=== PATIENT | female | born 1950 | race Caucasian/White ===

== ENCOUNTER → 2023-02-18 08:00 | Outpatient (CLI) | payer MEDICARE, OTHER, SELFPAY ==
--- NOTE | 2023-02-18 | DI.MRI.S_ITS ---
PROCEDURE: MR CERVICAL SPINE WO CON INDICATIONS: Cervicalgia TECHNIQUE: Noncontrast sagittal T1 spin echo and T2 fast spin echo, sagittal STIR, foraminal oblique sagittal T2 fast spin echo, and axial gradient echo or T2 fast spin echo through the cervical spine. COMPARISON: None. FINDINGS: Image quality: This examination is limited by involuntary motion artifact. Alignment and Curvature: There is normal bony alignment. Bone Marrow: Marrow demonstrates normal overall signal. Spinal Cord: Visualized spinal cord has normal size and signal. No cerebellar tonsillar herniation. Paraspinous Soft Tissues: No paravertebral masses. Prevertebral soft tissues are normal in thickness. C2-C3: Mild loss of disc height is seen. Loss of disc signal is seen. Mild to moderate disc osteophyte complex is seen, which is eccentric to the left. Mild facet joint hypertrophy is seen. There is moderate left-sided and no significant right-sided neural foraminal narrowing. Mild central canal narrowing is seen. C3-C4: Moderate loss of disc height is seen. Loss of disc signal is seen. Moderate disc osteophyte complex is seen. There is a central disc osteophyte protrusion seen. Uncovertebral joint hypertrophy is seen at this level. Moderate facet joint hypertrophy is seen. There is moderate to severe bilateral neural foraminal narrowing. At least moderate central canal narrowing is seen. There is associated mass effect upon the ventral spinal cord. C4-C5: Moderate loss of disc height is seen. Loss of disc signal is seen. At least moderate disc osteophyte complex is seen, with a central disc osteophyte protrusion. Moderate facet joint hypertrophy is seen. Severe bilateral neural foraminal narrowing can be seen. Moderate to severe central canal narrowing is seen, with associated ventral cord flattening. C5-C6: At least moderate loss of disc height and disc signal can be seen. Moderate disc osteophyte complex is seen, which is eccentric to the right, with a central/right disc osteophyte protrusion. Uncovertebral joint hypertrophy is seen at this level. Moderate facet joint hypertrophy is seen. Severe bilateral neural foraminal narrowing is seen. Moderate to severe central canal narrowing is seen, with associated ventral cord flattening. C6-C7: At least moderate loss of disc height and disc signal can be seen at this level. Moderate disc osteophyte complex is seen, with a mild central/right disc osteophyte protrusion. Uncovertebral joint hypertrophy is seen at this level. Moderate facet joint hypertrophy is seen. There is moderate to severe bilateral neural foraminal narrowing seen. Moderate to severe central canal narrowing is seen. There is associated mass effect upon the ventral spinal cord. C7-T1: Moderate loss of disc height is seen. Loss of disc signal is seen. Mild to moderate disc osteophyte complex is seen. Moderate facet hypertrophy is seen, right worse than left. There is moderate right-sided and no significant left-sided neural foraminal narrowing. No significant central canal narrowing is seen. IMPRESSION: Multiple levels of significant cervical spine degenerative change can be seen, which are overall worst at C4-C5 and C5-C6. Dictated by: Bhavik Kraus M.D. on 02/18/2023 at 11:05 Approved by: Bhavik Kraus M.D. on 02/18/2023 at 11:10
== END ==
PROVIDERS: PCP Nurse Practitioner Family; Referring Provider Physical Medicine & Rehabilitation Pain Medicine; Visit Provider Physical Medicine & Rehabilitation Pain Medicine
DX: M47.812 Spondylosis without myelopathy or radiculopathy, cervical region (principal); M54.2 Cervicalgia
CPT/HCPCS: 72141

== ENCOUNTER → 2023-12-25 08:19 | Outpatient (CLI) | payer MEDICARE, OTHER, SELFPAY ==
--- NOTE | 2023-12-25 08:23 | DI.CT.S_ITS ---
PROCEDURE: CT LUNG LOW DOSE SCREENING INDICATIONS: SCREENING TECHNIQUE: Noncontrast 2.0-2.5 mm thick sections acquired from the pulmonary apices to the posterior costophrenic angles. 7 mm thick axial MIP, and 5 mm coronal and sagittal reformats were then acquired. For radiation dose reduction, the following was used: automated exposure control, adjustment of mA and/or kV according to patient size. COMPARISON: None. FINDINGS: Image quality: Diagnostic. Lower Neck: No enlarged lymph nodes. Thyroid: No thyroid nodules which require sonographic follow up, per consensus guidelines. Axillae: No enlarged lymph nodes. Chest Wall: Unremarkable. Bones: Unremarkable. Lungs and Pleura: No pneumothorax or pleural effusions. There is a juxtapleural nodule measuring 7 millimeters in the right lower lobe (3/188, MIP image 96). Heart: Heart size is normal. No pericardial effusion. Thoracic Vessels: The aorta and pulmonary arteries demonstrate normal size. Mediastinum and [place]: No enlarged lymph nodes. Esophagus: No wall thickening. No hiatal hernia. Upper Abdomen: Visualized upper abdomen solid organs and bowel loops appear normal. IMPRESSION: Right lower lobe 7 millimeter subpleural nodule. LUNG-RADS 2; continued annual screening, if eligible. Clinically Significant Non-pulmonary Findings: None. Approved by: Nimo Hummel M.D.,Ph.D. on 12/25/2023 at 13:20
--- NOTE | 2023-12-25 08:23 | DI.US.S_ITS ---
PROCEDURE: US ABD AORTA ANEURYSM SCREEN INDICATIONS: SCREENING TECHNIQUE: Real time scanning was performed of the aorta and iliac arteries, with image documentation. COMPARISON: None. FINDINGS: Aorta: Proximal aortic diameter measures 2.3 cm. Mid-aorta measures 2.0 cm. Distal aortic diameter is 1.6 cm. Iliac arteries: Right common iliac artery measures 1.1 cm. Left common iliac artery measures 1.0 cm. IMPRESSION: No abdominal aortic ectasia or aneurysmal dilatation. Dictated by: Lilly Peck M.D. on 12/25/2023 at 11:05 Approved by: Lilly Peck M.D. on 12/25/2023 at 11:06
== END ==
LOC: US 08:22
PROVIDERS: PCP Family Medicine; Referring Provider Family Medicine; Visit Provider Family Medicine
DX: Z12.2 Encounter for screening for malignant neoplasm of respiratory organs (principal); Z13.6 Encounter for screening for cardiovascular disorders; R91.1 Solitary pulmonary nodule; Z87.891 Personal history of nicotine dependence
CPT/HCPCS: 71271; 76706

== ENCOUNTER → 2024-06-09 08:54 | Outpatient (CLI) | payer MEDICARE, OTHER, SELFPAY | PROVIDERS: PCP Family Medicine; Visit Provider Urology | DX: R33.9 Retention of urine, unspecified (principal); R39.9 Unspecified symptoms and signs involving the genitourinary system | CPT/HCPCS: 87077; 87086; 87147; 87186 ==

== ENCOUNTER 2024-06-18 06:25 | Day surgery (SDC) | payer MEDICARE, OTHER, SELFPAY ==
[2024-06-15 13:09] VITALS: BMI 23.6
--- NOTE | 2024-06-18 | PATH_ITS ---
[facility] Accession Number: [id number] No. of containers..01 Tissue . 01 Material submitted: . bladder - POSTERIOR BLADDER MASS . 01 Diagnosis: POSTERIOR BLADDER MASS, TRANSURETHRAL RESECTION OF BLADDER TUMOR: Carcinoma of the bladder. Please see Case Summary . CASE SUMMARY . Specimen: Transurethral resection of bladder. . Tumor Site: Posterior wall. . Histologic type: Urothelial carcinoma, invasive (conventional). . Histologic grade: High grade. . Tumor extent: Invades lamina propria (subepithelial connective tissue). . Lymphovascular invasion not definitively identified. . Muscularis propria (detrusor muscle): Present in specimen and negative for tumor. . 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 MR 06/23/2024 1158 Local . 01 Comment: As part of ongoing assistant quality manager, this case is also reviewed by Dr. Chelsea Hill, who agrees with the interpretation. . Dr. Cody discussed results with Dr. Valdez Wasserman's nurse, on 06-23-24 at approximately 11:44 a.m. . 01 Electronically signed: . Alejandra Cody MD, Pathologist NPI- [id number] . 01 Gross description: . POSTERIOR BLADDER MASS: Received in formalin are 3 fragment(s) of smith, soft tissue measuring 0.3 x 0.3 x 0.3 cm to 0.6 x 0.3 x 0.3 cm submitted entirely in 1 cassette(s) /ANNA 06/21/2024 2318 Local . 01 Pathologist provided ICD-10: D49.4 . 01 CPT . 299923 Specimen Comment: A courtesy copy of this report has been sent to [facility] Performed at: [address], [place], [place] [id number] MD Peter Weaver MD Phone: [phone]
[2024-06-18 07:05] VITALS: BP 169/91; PULSE 75; RESP 16; TEMP 36.9; O2SAT 97; BMI 23.6
[2024-06-18] MEDS: LACTATED RINGERS 1,000 ML 21 ML IV (07:10)
--- NOTE | 2024-06-18 07:36 | PM.PREOP ---
Pre-operative Note COVID-19 COVID-19 status: Not tested Interval Note History & Physical reviewed/Exam performed by Physician: Yes Changes to H&P: No
[2024-06-18] MEDS: CEFAZOLIN 2 GM/100 ML PREMIX 100 ML IV (07:53)
--- NOTE | 2024-06-18 07:56 | SUR.OPER ---
Lithotomy on padded OR bed, head on pillow, arms secured on padded arm boards at <90 degrees abduction. Legs secured in padded yellow fins stirrups.
[2024-06-18 08:22] VITALS: BP 150/85; PULSE 68; RESP 14; TEMP 36.2; O2SAT 96
--- NOTE | 2024-06-18 08:22 | PM.OP.1 ---
Procedure & Clinicians Procedure: Cystoscopy Transurethral resection of bladder tumor, 2-5cm in greatest diameter Same procedure as scheduled: Yes Indications: 73 y/o M w/ a 3cm patch of papillary lesions along his bladder dome concerning for bladder cancer. Surgeon: Tl Kellogg Click Yes if Unassisted: Yes Anesthesia Type: General Operative Notes Findings: 3cm patch of papillary lesions along his bladder dome Grade 4 trabeculations throughout his bladder Several small posterior bladder wall diverticulum Closure Type: not applicable Specimen(s): other Prosthetic devices, grafts, tissues, transplants, or devices: Posterior bladder wall mass Applied: catheter Estimated Blood Loss (mL): 2 Blood products transfused: none Procedure in detail: Patient was identified in the preoperative holding area and consent confirmed. He was then brought to the operating room where general anesthesia was induced. He was then placed in the low lithotomy position. He was then prepped and draped in the usual sterile fashion. A surgical timeout was conducted and all were in agreement. Access to the bladder was obtained via a 21Fr cystoscope. Complete cystoscopy was then performed using a 30 and 70 degree lens. A 3cm patch of papillary lesions along his bladder dome were confirmed. Bilateral ureteral orifices were visualized and noted to be orthotopic in nature. No other concerning lesions were appreciated. Of note, he was found to have coaptating lateral prostatic lobes and a small intravesical median lobe. The cystoscope was then removed and the 26Fr resectoscope with visual obturator was then advanced through his urethra and into his bladder. The working element with Gyrus loop was then assembled and passed through the resectoscope and into the bladder. The mass was then resected to its base. The resection bed was then fulgurated. All bladder specimens were then manually evacuated from the bladder using the resectoscope. Hemostasis was evaluated and noted to be excellent at case end. An 18Fr davis was then inserted into the bladder at case end, 10cc of sterile water was used for balloon insufflation. Anesthesia was reversed, he was extubated in the OR and transferred to the PACU in stable condition for recovery. Complications: none Post-operative Condition: stable Disposition: PACU Plan for aftercare: Discharge home from PACU. He will be discharged home with his davis catheter in place and will return to the Urology clinic on 21 Jun 2024 at 0840 to have his davis catheter removed. He will then be contacted to return to clinic to discuss his pathology results as soon as they return (this is his preference).
[2024-06-18 08:27] VITALS: BP 154/91; PULSE 73; RESP 14; O2SAT 94
[2024-06-18 08:32] VITALS: BP 166/100; PULSE 81; RESP 13; O2SAT 98
[2024-06-18 08:37] VITALS: BP 191/93; PULSE 80; RESP 15; O2SAT 97
[2024-06-18] MEDS: ACETAMINOPHEN 325 MG TABLET 975 MG PO (08:39)
[2024-06-18 08:44] VITALS: BP 174/105; PULSE 91; RESP 17; O2SAT 98
[2024-06-18] MEDS: PHENAZOPYRIDINE 100 MG TABLET 200 MG PO (08:45)
== END 2024-06-18 09:15 | disposition home or self-care (01) ==
PROVIDERS: PCP Family Medicine; Referring Provider Urology; Visit Provider Urology
PROC: 0TBB8ZZ Excision of Bladder, Via Natural or Artificial Opening Endoscopic (ICD-10-PCS; CPT 52235; principal; 2024-06-18 07:45)
DX: C67.4 Malignant neoplasm of posterior wall of bladder (principal); R33.9 Retention of urine, unspecified; N40.1 Benign prostatic hyperplasia with lower urinary tract symptoms
CPT/HCPCS: 52235; J0690; J1100; J2405; J2704; J3010

== ENCOUNTER 2024-07-26 07:47 | Day surgery (SDC) | payer MEDICARE, OTHER, SELFPAY ==
[2024-07-21 11:26] VITALS: BMI 23.0
[2024-07-26] VITALS (9 sets, daily range): BP systolic 157–182; BP diastolic 87–99; PULSE 87–99; RESP 12–17; TEMP 36.4–36.9; O2SAT 94–98; BMI 23.3
--- NOTE | 2024-07-26 | PATH_ITS ---
[facility] Accession Number: [id number] No. of containers..01 Tissue . 01 Material submitted: . bladder - BLADDER TUMOR . 01 Diagnosis: URINARY BLADDER TUMOR, BIOPSIES: Fragments of benign, markedly inflamed and extensively eroded urothelial mucosa with areas of necrosis, degenerative changes, and dystrophic calcifications; please see microscopic description. Negative for atypia or invasive carcinoma. KEVIN 07/29/2024 1323 Local . 01 Electronically signed: . Isabella Hill MD, Pathologist NPI- [id number] . 01 Gross description: . Received in formalin with two patient identifiers and bladder tumor, are four smith to brown soft tissue fragments, 0.3 to 0.5 cm in greatest dimension, submitted in A1. ([id number]) /MRV 07/27/2024 1753 Local . 01 Microscopic: . Microscopic examination of the bladder biopsies reveals fragments of urothelial mucosa with marked active inflammation and extensive necrosis, degenerative changes and dystrophic calcifications. As the biopsies appear extensively inflamed, multiple deeper levels and immunostains are performed (to rule out invasive carcinoma) with the following results: CHRYSTAL (sanders epithelial marker) is negative for infiltrating tumor cells and CD68 (histiocytic marker) highlights scattered histiocytes among the inflammatory cells. . The biopsy appears markedly denuded of the urothelial surface epithelium; however, in areas where it is present there is no atypia. . In summary, the morphology and immunohistochemistry support the absence of infiltrating carcinoma. The findings overall may represent treatment effect. . Please correlate with the cystoscopic findings. . . * This test was developed and the performance characteristics were validated by [employer]. It has not been cleared or approved by the U.S. Food and Drug Administration. . 01 Pathologist provided ICD-10: C67.9 . 01 CPT . 305511, G34340, Z31401 Specimen Comment: A courtesy copy of this report has been sent to [facility]ology Performed at: [address] [id number] MD Peter Weaver MD Phone: [phone]
[2024-07-26] MEDS: LACTATED RINGERS 1,000 ML 21 ML IV (08:21)
--- NOTE | 2024-07-26 09:25 | PM.PREOP ---
Pre-operative Note COVID-19 COVID-19 status: Not tested Interval Note History & Physical reviewed/Exam performed by Physician: Yes Changes to H&P: No
[2024-07-26] MEDS: VANCOMYCIN 1,000 MG/200 ML PIGGYBACK 200 MG IV (10:10)
--- NOTE | 2024-07-26 10:37 | SUR.OPER ---
Lithotomy on padded OR bed, head on pillow, arms secured on padded arm boards at <90 degrees abduction. Legs secured in padded yellow fins stirrups.
--- NOTE | 2024-07-26 11:02 | PM.OP.1 ---
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 Discussed the need for a repeat TURBT based upon AUA guidelines. Surgeon: Tl Kellogg Click Yes if Unassisted: Yes Anesthesia Type: General Operative Notes Findings: Previously resected 3cm area along bladder dome. Closure Type: not applicable Specimen(s): other (Bladder mass) Applied: catheter Estimated Blood Loss (mL): 3 Blood products transfused: none Procedure in detail: Patient was identified in the preoperative holding area and consent confirmed. He was then brought to the operating room where general anesthesia was induced. He was then placed in the low lithotomy position. He was then prepped and draped in the usual sterile fashion. A surgical timeout was conducted and all were in agreement. Access to the bladder was obtained via a 21Fr cystoscope. Complete cystoscopy was then performed using a 30 and 70 degree lens. The 3cm patch of previously resected tissue along his bladder dome was confirmed. Bilateral ureteral orifices were visualized and noted to be orthotopic in nature. No other concerning lesions were appreciated. Of note, he was found to have coaptating lateral prostatic lobes and a small intravesical median lobe. The cystoscope was then removed and the 26Fr resectoscope with visual obturator was then advanced through his urethra and into his bladder. The working element with Gyrus loop was then assembled and passed through the resectoscope and into the bladder. A deep specimen was taken from the aforementioned area of prior resection. The resection bed was then fulgurated. All bladder specimens were then manually evacuated from the bladder using the resectoscope. Hemostasis was evaluated and noted to be excellent at case end. An 20Fr davis was then inserted into the bladder at case end, 10cc of sterile water was used for balloon insufflation. Anesthesia was reversed, he was extubated in the OR and transferred to the PACU in stable condition for recovery. Complications: none Post-operative Condition: stable Disposition: PACU Plan for aftercare: Discharge home from PACU. He will be discharged home with his davis catheter in place and will return to the Urology clinic on 29 Jul 2024 to have his davis catheter removed. He will then be contacted with the results of his pathology. He would prefer to return to clinic if he has muscle invasive disease.
== END 2024-07-26 11:35 | disposition home or self-care (01) ==
PROVIDERS: PCP Family Medicine; Referring Provider Urology; Visit Provider Urology
PROC: 0TBB8ZZ Excision of Bladder, Via Natural or Artificial Opening Endoscopic (ICD-10-PCS; CPT 52235; principal; 2024-07-26 09:15)
DX: C67.9 Malignant neoplasm of bladder, unspecified (principal)
CPT/HCPCS: 52235; 82962; J1100; J2250; J2405; J2704; J3010

== ENCOUNTER → 2024-08-17 08:50 | Outpatient (CLI) | payer MEDICARE, OTHER, SELFPAY | PROVIDERS: PCP Family Medicine; Visit Provider Urology | DX: R39.9 Unspecified symptoms and signs involving the genitourinary system (principal) | CPT/HCPCS: 87086 ==

== ENCOUNTER → 2024-08-25 08:31 | Outpatient (CLI) | payer MEDICARE, OTHER, SELFPAY | PROVIDERS: PCP Family Medicine; Visit Provider Urology | DX: N40.1 Benign prostatic hyperplasia with lower urinary tract symptoms (principal); R39.9 Unspecified symptoms and signs involving the genitourinary system | CPT/HCPCS: 87077; 87086; 87186 ==

== ENCOUNTER → 2024-08-31 08:17 | Outpatient (CLI) | payer MEDICARE, OTHER, SELFPAY | PROVIDERS: PCP Family Medicine; Referring Provider Urology; Visit Provider Urology | DX: R39.9 Unspecified symptoms and signs involving the genitourinary system (principal); R33.9 Retention of urine, unspecified | CPT/HCPCS: 87077; 87086; 87147; 87186 ==

== ENCOUNTER → 2024-09-07 08:42 | Outpatient (CLI) | payer MEDICARE, OTHER, SELFPAY | PROVIDERS: PCP Family Medicine; Visit Provider Urology | DX: R33.9 Retention of urine, unspecified (principal); C67.9 Malignant neoplasm of bladder, unspecified; R39.9 Unspecified symptoms and signs involving the genitourinary system | CPT/HCPCS: 51720; 81002; 87086; J9030 ==

== ENCOUNTER → 2024-09-20 08:09 | Outpatient (CLI) | payer MEDICARE, OTHER, SELFPAY | PROVIDERS: PCP Family Medicine; Visit Provider Urology | DX: R39.9 Unspecified symptoms and signs involving the genitourinary system (principal) | CPT/HCPCS: 87077; 87086 ==

== ENCOUNTER → 2024-09-27 08:20 | Outpatient (CLI) | payer MEDICARE, OTHER, SELFPAY | PROVIDERS: PCP Family Medicine; Visit Provider Urology | DX: N40.1 Benign prostatic hyperplasia with lower urinary tract symptoms (principal); R33.9 Retention of urine, unspecified; R39.9 Unspecified symptoms and signs involving the genitourinary system | CPT/HCPCS: 51720; 81002; 87077; 87086; 87147; 87186; J9030 ==

== ENCOUNTER → 2024-11-09 08:48 | Outpatient (CLI) | payer MEDICARE, OTHER, SELFPAY | PROVIDERS: PCP Family Medicine; Visit Provider Urology | DX: N40.1 Benign prostatic hyperplasia with lower urinary tract symptoms (principal) | CPT/HCPCS: 51720; 81002; 87077; 87086; 87186; 99214; J9030 ==

== ENCOUNTER → 2024-11-16 08:28 | Outpatient (CLI) | payer MEDICARE, OTHER, SELFPAY | PROVIDERS: PCP Family Medicine; Visit Provider Urology | DX: C67.9 Malignant neoplasm of bladder, unspecified (principal); N40.1 Benign prostatic hyperplasia with lower urinary tract symptoms; R33.9 Retention of urine, unspecified; R39.9 Unspecified symptoms and signs involving the genitourinary system | CPT/HCPCS: 51720; 81002; 87077; 87086; 87186; J9030 ==

== ENCOUNTER → 2024-11-24 10:08 | Outpatient (CLI) | payer MEDICARE, OTHER, SELFPAY | PROVIDERS: PCP Family Medicine; Visit Provider Urology | DX: C67.9 Malignant neoplasm of bladder, unspecified (principal); R33.9 Retention of urine, unspecified; R39.9 Unspecified symptoms and signs involving the genitourinary system | CPT/HCPCS: 51720; 81002; 87077; 87086; 87186; J9030 ==

== ENCOUNTER → 2025-02-03 09:40 | Outpatient (CLI) | payer MEDICARE, OTHER, SELFPAY | PROVIDERS: PCP Family Medicine; Visit Provider Urology | DX: N40.1 Benign prostatic hyperplasia with lower urinary tract symptoms (principal); R39.9 Unspecified symptoms and signs involving the genitourinary system | CPT/HCPCS: 87086 ==

== ENCOUNTER → 2025-02-10 07:59 | Outpatient (CLI) | payer MEDICARE, OTHER, SELFPAY | PROVIDERS: PCP Family Medicine; Visit Provider Urology | DX: N40.1 Benign prostatic hyperplasia with lower urinary tract symptoms (principal); R33.9 Retention of urine, unspecified | CPT/HCPCS: 87077; 87086 ==

== ENCOUNTER → 2025-02-16 09:26 | Outpatient (CLI) | payer MEDICARE, OTHER, SELFPAY | PROVIDERS: PCP Family Medicine; Visit Provider Urology | DX: N40.1 Benign prostatic hyperplasia with lower urinary tract symptoms (principal) | CPT/HCPCS: 87077; 87086; 87186 ==

== ENCOUNTER → 2025-02-23 08:50 | Outpatient (CLI) | payer MEDICARE, OTHER, SELFPAY | PROVIDERS: PCP Family Medicine; Visit Provider Urology | DX: N40.1 Benign prostatic hyperplasia with lower urinary tract symptoms (principal); R33.9 Retention of urine, unspecified; C67.9 Malignant neoplasm of bladder, unspecified; Z68.23 Body mass index [BMI] 23.0-23.9, adult | CPT/HCPCS: 51720; 81002; 87077; 87086; 87186; J9030 ==

== ENCOUNTER → 2025-05-12 10:18 | Outpatient (CLI) | payer MEDICARE, OTHER, SELFPAY | PROVIDERS: PCP Family Medicine; Visit Provider Urology | DX: R39.9 Unspecified symptoms and signs involving the genitourinary system (principal); R33.9 Retention of urine, unspecified | CPT/HCPCS: 87077; 87086; 87186 ==